=== PATIENT | male | born 1995 | race African-American/Black ===

== ENCOUNTER 2022-06-14 19:00 | Emergency (ER) | payer MEDICAID ==
[~2022-06-14] VITALS: Ht 182.9 cm; Wt 82.0 kg
[2022-06-14 19:12] VITALS: BP 111/61
[2022-06-14] MEDS ORDERED: IBUPROFEN 600MG TABLET PO ONE (19:45)
[2022-06-14 21:55] LABS: HEMATOCRIT. 46.1 % (42.0-52.0); HEMOGLOBIN. 15.2 g/dL (14.0-18.0); MEAN CORPUSCULAR HEMOGLOBIN 27.3 pg (28.0-32.0); MEAN CORPUSCULAR VOLUME 82.9 fL (80.0-94.0); MEAN PLATELET VOLUME 8.4 fl (7.4-10.4); PLATELET 199 x1000/uL (130-400); RED BLOOD CELL COUNT 5.56 mill/uL (4.7-6.1); RED CELL DISTRIBUTION WIDTH 13.3 % (11.6-14.6)
[2022-06-14 22:00] LABS: CHLORIDE 108 mEq/L (98-107)
[2022-06-15 00:25] LABS: PLATELET ESTIMATE NORMAL
== END 2022-06-15 00:42 | disposition left against medical advice (07) ==
LOC: ER 19:00
DX: R07.89 Other chest pain (principal); I25.2 Old myocardial infarction; Z87.891 Personal history of nicotine dependence
CPT/HCPCS: 36415; 71045; 80053; 84484; 85025; 93005; 99285